=== PATIENT | male | born 1970 | race Caucasian/White ===

== ENCOUNTER → 2018-07-13 08:11 | Outpatient (CLI) | payer OTHER, MEDICAID, SELFPAY ==
--- NOTE | 2018-07-13 08:12 | DI.RAD.S_ITS ---
PROCEDURE: XR LUMBAR SPINE 2-3V INDICATIONS: Low back pain TECHNIQUE: 3 views of the lumbar spine were acquired. COMPARISON: None. FINDINGS: Bones: 5 [id number] vertebrae are present. There is normal bony alignment. No vertebral body compression fractures. No suspicious bony lesions. Degenerative endplate changes and bilateral facet arthrosis at L4-5 and L5-S1 levels are seen. Soft tissues: Overlying bowel gas pattern is normal. No suspicious soft tissue calcifications. IMPRESSION: Degenerative disc disease in lower lumbar spine. No compression fracture or traumatic spondylolisthesis. Dictated by: Jair Chu M.D. on 07/13/2018 at 11:12 Approved by: Jair Chu M.D. on 07/13/2018 at 11:13
== END ==
PROVIDERS: Family Provider Family Medicine; PCP Family Medicine; Visit Provider Family Medicine
DX: M51.36 Other intervertebral disc degeneration, lumbar region (principal); M51.37 Other intervertebral disc degeneration, lumbosacral region; M54.5 Low back pain
CPT/HCPCS: 72100

== ENCOUNTER 2018-08-01 13:58 | Emergency (ER) | payer OTHER, MEDICAID, SELFPAY ==
[2018-08-01] VITALS (7 sets, daily range): BP systolic 129–154; BP diastolic 70–94; PULSE 55–89; RESP 12–22; TEMP 36.3–36.9; O2SAT 96–99; BMI 30.8
--- NOTE | 2018-08-01 14:08 | DI.RAD.S_ITS ---
PROCEDURE: XR CHEST 1V INDICATIONS: chest pain TECHNIQUE: One view of the chest was acquired. COMPARISON: [facility], CHEST 2 VIEW, 02/19/2016, 9:28. [facility], CHEST 2 VIEW, 12/21/2015, 9:37. FINDINGS: Surgical changes and devices: None. Lungs and pleura: No pleural effusions or pneumothorax. Lungs are clear. Mediastinum: Mediastinal contours appear normal. Heart size is normal. Bones and chest wall: No suspicious bony lesions. Overlying soft tissues appear unremarkable. IMPRESSION: Mildly reduced inspiratory volume. Dictated by: Parker Block M.D. on 08/01/2018 at 14:25 Approved by: Parker Block M.D. on 08/01/2018 at 14:25
--- NOTE | 2018-08-01 14:11 | ED.CHESTPAIN ---
HPI - Chest Pain <CARRIE Dc - Last Filed: 08/01/18 21:52> General Chief Complaint: Chest Pain Stated Complaint: thinks he had a heart attack Time Seen by Provider: 08/01/18 14:09 Source: patient Mode of arrival: ambulatory Limitations: no limitations History of Present Illness HPI narrative: 47-year-old male with history of asthma who is a former smoker here for complaint of having chest pain that started earlier today. Approximately 0.5 hr prior to arrival he had left-sided chest pain that radiated into his left arm. He denies any trauma to his chest. He denies any shortness of breath at this time. He does report that he has had nasal congestion and cough over the past several days he has been using his albuterol inhaler to help with the symptoms. He denies any triggers for his pain. He states that he was getting into a vehicle when the pain started. No nausea or vomiting. No diaphoresis. Pain is a dull ache at this point. MD complaint: chest pain Related Data Home Medications Medication Instructions Recorded Confirmed acetaminophen [Tylenol] 1 dose PO PRN PRN 08/01/18 08/01/18 aspirin 650 mg PO .ONCE 08/01/18 08/01/18 ibuprofen 1 dose PO PRN PRN 08/01/18 08/01/18 methocarbamol 750 mg PO TID PRN 08/01/18 08/01/18 Previous Rx's Medication Instructions Recorded fluticasone 110 mcg/actuation HFA 1 puff INHALATION BID #12 gram 05/24/18 aerosol inhaler rosuvastatin 10 mg tablet 10 mg PO HS #30 tab 06/13/[address] See Label Instructions .ROUTE 06/28/18 .COMPLEX #1 each albuterol sulfate HFA 90 1 puff INHALATION Q4HP PRN #8 gm 07/12/18 mcg/actuation aerosol inhaler Allergies Allergy/AdvReac Type Severity Reaction Status Date / Time No Known Drug Allergies Allergy Unverified 06/28/18 15:56 Review of Systems <CARRIE Dc - Last Filed: 08/01/18 21:52> Constitutional Denies chills, Denies fatigue, Denies fever(s), Denies lethargy and Denies weakness Eyes Denies change in vision, Denies eye discharge, Denies irritation and Denies loss of vision ENT Ears, Nose, Mouth, and Throat: Denies change in voice, Denies neck pain and Denies sore throat Cardiovascular Reports chest pain at rest, Denies dyspnea and Denies dyspnea on exertion Respiratory Denies cough, Denies dyspnea, Denies dyspnea on exertion and Denies wheezing Gastrointestinal Gastrointestinal: Denies abdominal pain, Denies change in bowel habits, Denies diarrhea, Denies nausea and Denies vomiting Genitourinary Denies hematuria, Denies flank pain, Denies urinary incontinence and Denies urinary urgency Musculoskeletal Denies neck pain Integumentary/Breasts Denies pruritus, Denies erythema, Denies rash and Denies wounds Neurologic Denies confusion, Denies loss of vision and Denies weakness Psychiatric Denies anxiety, Denies confusion, Denies depression, Denies homicidal ideation and Denies suicidal ideation Endocrine Denies fatigue and Denies flushing Allergic/Immunologic Denies wheezing Exam <CARRIE Dc - Last Filed: 08/01/18 21:52> Initial Vital Signs Initial Vital Signs: Vital Signs Temperature 97.4 F L 08/01/18 14:10 Pulse Rate 89 08/01/18 14:10 Respiratory Rate 14 08/01/18 14:10 Blood Pressure 138/89 08/01/18 14:10 Pulse Oximetry 99 08/01/18 14:10 Const General: cooperative and well developed Nutritional Appearance: well nourished Orientation: alert, awake, oriented x3 and not confused [facility] Mouth: oral mucosae normal and moist mucous membranes Eyes Conjunctivae: conjunctivae normal Sclera: sclerae normal Pupils: PERRL EOM: EOM intact bilaterally Chest Chest: normal inspection of the chest Cardio Rate: regular rate Rhythm: regular rhythm Heart Sounds: no click, no gallops, no murmurs and no rubs Pulses: normal peripheral pulses Skin General: no rashes or lesions noted, No jaundice and No petechiae Neuro General: alert, oriented x3, gait normal and no focal motor deficits Speech: speech normal <Carolina Dumont MD - Last Filed: 08/02/18 12:21> Initial Vital Signs Initial Vital Signs: Vital Signs Temperature 97.4 F L 08/01/18 14:10 Pulse Rate 89 08/01/18 14:10 Respiratory Rate 14 08/01/18 14:10 Blood Pressure 138/89 08/01/18 14:10 Pulse Oximetry 99 08/01/18 14:10 Scores <CARRIE Dc - Last Filed: 08/01/18 21:52> HEART Score Heart Score history: Slightly Suspicious Heart Score EKG: Normal Heart Score Age: 45-64 years old Heart Score risk factors: 1-2 risk factors Heart Score troponin: < or = to normal limit Heart Score Total: 2 PERC Score Age greater than or equal to 50 years: No Heart rate greater than or equal to 100 bpm: No Room Air O2 Sat less than 95%: No Unilateral leg swelling: No Recent trauma or surgery: No Hemoptysis: No Prior PE or DVT: No Hormone Use: No Total PERC Score: 0 Course <CARRIE cD - Last Filed: 08/01/18 21:52> Orders Ordered: ED Orders 08/01/18 14:08 XR chest 1V Stat 08/01/18 14:09 EKG-12 Lead Stat 08/01/18 14:42 Complete Blood Count AUTO DIFF Stat Comprehensive Metabolic Panel Stat Lipase Stat Partial Thromboplastin Time Stat Prothrombin Time INR Stat Troponin & CK Cardiac Panel Stat 08/01/18 16:42 Troponin I Stat Vital Signs - 8 hr 08/01/18 14:10 08/01/18 14:39 08/01/18 15:15 Temperature 97.4 F L Pulse Rate 89 86 63 Respiratory Rate 14 22 12 Blood Pressure 138/89 Blood Pressure [Left Arm] 154/94 H 135/76 Pulse Oximetry 99 96 08/01/18 15:49 08/01/18 16:26 08/01/18 17:06 Temperature Pulse Rate 58 L 71 55 L Respiratory Rate 20 16 14 Blood Pressure Blood Pressure [Left Arm] 136/73 133/73 130/80 Pulse Oximetry 96 98 97 08/01/18 17:46 Temperature 98.4 F Pulse Rate 61 Respiratory Rate 19 Blood Pressure 129/70 Blood Pressure [Left Arm] Pulse Oximetry 97 <Carolina Dumont MD - Last Filed: 08/02/18 12:21> Orders Ordered: ED Orders 08/01/18 14:08 XR chest 1V Stat 08/01/18 14:09 EKG-12 Lead Stat 08/01/18 14:42 Complete Blood Count AUTO DIFF Stat Comprehensive Metabolic Panel Stat Lipase Stat Partial Thromboplastin Time Stat Prothrombin Time INR Stat Troponin & CK Cardiac Panel Stat 08/01/18 16:42 Troponin I Stat Vital Signs - 8 hr 08/01/18 14:10 08/01/18 14:39 08/01/18 15:15 Temperature 97.4 F L Pulse Rate 89 86 63 Respiratory Rate 14 22 12 Blood Pressure 138/89 Blood Pressure [Left Arm] 154/94 H 135/76 Pulse Oximetry 99 96 08/01/18 15:49 08/01/18 16:26 08/01/18 17:06 Temperature Pulse Rate 58 L 71 55 L Respiratory Rate 20 16 14 Blood Pressure Blood Pressure [Left Arm] 136/73 133/73 130/80 Pulse Oximetry 96 98 97 08/01/18 17:46 Temperature 98.4 F Pulse Rate 61 Respiratory Rate 19 Blood Pressure 129/70 Blood Pressure [Left Arm] Pulse Oximetry 97 MDM - Chest Pain <CARRIE Dc - Last Filed: 08/01/18 21:52> Lab Data Result diagrams: 08/01/18 14:42 08/01/18 14:42 Lab Results 08/01/18 08/01/18 08/01/18 Range/Units 14:42 14:42 14:42 WBC 8.7 (4.5-11.0) X10^3/uL RBC 4.94 (4.5-5.9) X10^6/uL Hgb 14.7 (13.5-17.5) g/dL Hct 42.1 (41-53) % MCV 85.3 (80-100) fL MCH 29.7 (26-34) PG MCHC 34.8 (30-36) % RDW 12.7 (11.6-14.8) % Plt Count 312 (150-400) X10^3/uL Neut % (Auto) 71.6 (50-75) % Lymph % (Auto) 18.9 L (25-40) % [place] % (Auto) 8.0 (3-14) % Eos % (Auto) 0.9 L (2-4) % Baso % (Auto) 0.6 (0-2) % Neut # (Auto) 6200 H (8187-0463) /uL PT 13.3 H (10.1-12.7) SECONDS INR 1.2 (0.9-1.3) APTT 31 (26.4-36.2) SECONDS Sodium 143 (137-145) mmol/L Potassium 4.1 (3.4-5.1) mmol/L Chloride 104 (98-107) mmol/L Carbon Dioxide 28 (22-32) mmol/L BUN 17 (9-20) mg/dL Creatinine 0.70 (0.66-1.25) mg/dL Estimated GFR > 60.0 (>60) mL/min BUN/Creatinine Ratio 24.3 H (6-22) Glucose 90 (70-100) mg/dL Calcium 9.5 (8.4-10.2) mg/dL Total Bilirubin 0.4 (0.2-1.3) mg/dL AST 30 (17-59) IU/L ALT 60 (21-72) IU/L Alkaline Phosphatase 73 (38-126) U/L Total Creatine Kinase 195 H (55-170) U/L CK-MB (CK-2) 3.15 H (<2.37) ng/mL CK-MB (CK-2) Rel Index 1.6 (1.5-5.0) % Troponin I < 0.012 (0.01-0.034) ng/mL Total Protein 7.3 (6.3-8.2) g/dL Albumin 4.7 (3.5-5.0) g/dL Globulin 2.6 (1.7-4.1) g/dL Albumin/Globulin Ratio 1.8 (1.0-2.8) Lipase 67 (23-300) U/L 08/01/18 Range/Units 16:42 WBC (4.5-11.0) X10^3/uL RBC (4.5-5.9) X10^6/uL Hgb (13.5-17.5) g/dL Hct (41-53) % MCV (80-100) fL MCH (26-34) PG MCHC (30-36) % RDW (11.6-14.8) % Plt Count (150-400) X10^3/uL Neut % (Auto) (50-75) % Lymph % (Auto) (25-40) % [place] % (Auto) (3-14) % Eos % (Auto) (2-4) % Baso % (Auto) (0-2) % Neut # (Auto) (5029-5421) /uL PT (10.1-12.7) SECONDS INR (0.9-1.3) APTT (26.4-36.2) SECONDS Sodium (137-145) mmol/L Potassium (3.4-5.1) mmol/L Chloride (98-107) mmol/L Carbon Dioxide (22-32) mmol/L BUN (9-20) mg/dL Creatinine (0.66-1.25) mg/dL Estimated GFR (>60) mL/min BUN/Creatinine Ratio (6-22) Glucose (70-100) mg/dL Calcium (8.4-10.2) mg/dL Total Bilirubin (0.2-1.3) mg/dL AST (17-59) IU/L ALT (21-72) IU/L Alkaline Phosphatase (38-126) U/L Total Creatine Kinase (55-170) U/L CK-MB (CK-2) (<2.37) ng/mL CK-MB (CK-2) Rel Index (1.5-5.0) % Troponin I < 0.012 (0.01-0.034) ng/mL Total Protein (6.3-8.2) g/dL Albumin (3.5-5.0) g/dL Globulin (1.7-4.1) g/dL Albumin/Globulin Ratio (1.0-2.8) Lipase (23-300) U/L Imaging Data Chest x-ray: Radiologist's impression: [address] [address] XRay Report Signed Patient: Eduardo Arellano MR#: [id number] : 1970 Acct:[id number] Age/Sex: 47 / M Date of Service: 08/01/18 Loc: ED Accession Number: [id number] Procedure: XR chest 1V Ordering Provider: Carolina Dumont MD PROCEDURE: XR CHEST 1V INDICATIONS: chest pain TECHNIQUE: One view of the chest was acquired. COMPARISON: [facility], CHEST 2 VIEW, 02/19/2016, 9:28. [facility], CHEST 2 VIEW, 12/21/2015, 9:37. FINDINGS: Surgical changes and devices: None. Lungs and pleura: No pleural effusions or pneumothorax. Lungs are clear. Mediastinum: Mediastinal contours appear normal. Heart size is normal. Bones and chest wall: No suspicious bony lesions. Overlying soft tissues appear unremarkable. IMPRESSION: Mildly reduced inspiratory volume. Dictated by: Parker Block M.D. on 08/01/2018 at 14:25 Approved by: Parker Block M.D. on 08/01/2018 at 14:25 ECG Data Interpretation: EKG shows normal sinus rhythm with no ST elevation or depression. No ectopy. Ventricular rate is 64. Pr interval of 169. QRS duration of 106. QT of 407 MDM Narrative Medical decision making narrative: Chest x-ray was obtained and was negative for any acute findings. EKG shows normal sinus rhythm with no ST elevation or depression. Two sets of cardiac enzymes were obtained shows elevated CK CK-MB however relative index was normal. Troponin was negative on both draws. CBC and Chem panel were obtained were unremarkable. Heart score was 2. Perc score was 0. Differential between muscle skeletal pain as cardiac related pain seems unlikely with negative troponins. [id number] Tylenol Motrin as needed for any discomfort. Follow up with primary care provider in the next few days for re-evaluation recommend echo/stress test if still having symptoms. For any worsening symptoms return to the emergency room. <Carolina Dumont MD - Last Filed: 08/02/18 12:21> Lab Data Lab Results 08/01/18 08/01/18 08/01/18 Range/Units 14:42 14:42 14:42 WBC 8.7 (4.5-11.0) X10^3/uL RBC 4.94 (4.5-5.9) X10^6/uL Hgb 14.7 (13.5-17.5) g/dL Hct 42.1 (41-53) % MCV 85.3 (80-100) fL MCH 29.7 (26-34) PG MCHC 34.8 (30-36) % RDW 12.7 (11.6-14.8) % Plt Count 312 (150-400) X10^3/uL Neut % (Auto) 71.6 (50-75) % Lymph % (Auto) 18.9 L (25-40) % [place] % (Auto) 8.0 (3-14) % Eos % (Auto) 0.9 L (2-4) % Baso % (Auto) 0.6 (0-2) % Neut # (Auto) 6200 H (3963-1376) /uL PT 13.3 H (10.1-12.7) SECONDS INR 1.2 (0.9-1.3) APTT 31 (26.4-36.2) SECONDS Sodium 143 (137-145) mmol/L Potassium 4.1 (3.4-5.1) mmol/L Chloride 104 (98-107) mmol/L Carbon Dioxide 28 (22-32) mmol/L BUN 17 (9-20) mg/dL Creatinine 0.70 (0.66-1.25) mg/dL Estimated GFR > 60.0 (>60) mL/min BUN/Creatinine Ratio 24.3 H (6-22) Glucose 90 (70-100) mg/dL Calcium 9.5 (8.4-10.2) mg/dL Total Bilirubin 0.4 (0.2-1.3) mg/dL AST 30 (17-59) IU/L ALT 60 (21-72) IU/L Alkaline Phosphatase 73 (38-126) U/L Total Creatine Kinase 195 H (55-170) U/L CK-MB (CK-2) 3.15 H (<2.37) ng/mL CK-MB (CK-2) Rel Index 1.6 (1.5-5.0) % Troponin I < 0.012 (0.01-0.034) ng/mL Total Protein 7.3 (6.3-8.2) g/dL Albumin 4.7 (3.5-5.0) g/dL Globulin 2.6 (1.7-4.1) g/dL Albumin/Globulin Ratio 1.8 (1.0-2.8) Lipase 67 (23-300) U/L 08/01/18 Range/Units 16:42 WBC (4.5-11.0) X10^3/uL RBC (4.5-5.9) X10^6/uL Hgb (13.5-17.5) g/dL Hct (41-53) % MCV (80-100) fL MCH (26-34) PG MCHC (30-36) % RDW (11.6-14.8) % Plt Count (150-400) X10^3/uL Neut % (Auto) (50-75) % Lymph % (Auto) (25-40) % [place] % (Auto) (3-14) % Eos % (Auto) (2-4) % Baso % (Auto) (0-2) % Neut # (Auto) (4552-2542) /uL PT (10.1-12.7) SECONDS INR (0.9-1.3) APTT (26.4-36.2) SECONDS Sodium (137-145) mmol/L Potassium (3.4-5.1) mmol/L Chloride (98-107) mmol/L Carbon Dioxide (22-32) mmol/L BUN (9-20) mg/dL Creatinine (0.66-1.25) mg/dL Estimated GFR (>60) mL/min BUN/Creatinine Ratio (6-22) Glucose (70-100) mg/dL Calcium (8.4-10.2) mg/dL Total Bilirubin (0.2-1.3) mg/dL AST (17-59) IU/L ALT (21-72) IU/L Alkaline Phosphatase (38-126) U/L Total Creatine Kinase (55-170) U/L CK-MB (CK-2) (<2.37) ng/mL CK-MB (CK-2) Rel Index (1.5-5.0) % Troponin I < 0.012 (0.01-0.034) ng/mL Total Protein (6.3-8.2) g/dL Albumin (3.5-5.0) g/dL Globulin (1.7-4.1) g/dL Albumin/Globulin Ratio (1.0-2.8) Lipase (23-300) U/L Discharge Plan Departure Patient Disposition: Home Clinical Impression: Acute chest wall pain Discharge Date/Time: 08/01/18 17:47 Interventions: ED Discharge Assessment Last Done: 08/01/18 17:46 Instructions: DI for Chest Pain Activity Restrictions/Additional Instructions: Laboratory results, EKG and chest x-ray today were unremarkable. Signs and symptoms presents as chest wall pain. Recommend following up with primary care provider in the next couple days if symptoms do not resolve recommend discussing with primary care provider echo/stress test for further evaluation. Use [id number] Tylenol or Motrin as needed for any discomfort. For any worsening symptoms return to the emergency room. Prescriptions: No Action disabled parking permit See Label Instructions .ROUTE .COMPLEX Qty: 1 RF: 0 fluticasone [Flovent HFA] 110 mcg/actuation HFA aerosol inhaler 1 puff INHALATION BID Qty: 12 RF: 5 rosuvastatin [Crestor] 10 mg tablet 10 mg PO HS Qty: 30 RF: 3 albuterol sulfate [Ventolin HFA] 90 mcg/actuation HFA aerosol inhaler 1 puff INHALATION Q4HP PRN (Reason: shortness of breath) Qty: 8 RF: 11 methocarbamol 500 mg tablet 750 mg PO TID PRN (Reason: Muscle Spasm) RF: 0 acetaminophen [Tylenol] 325 mg Tablet 1 dose PO PRN PRN (Reason: Pain, Mild) RF: 0 aspirin 325 mg Tablet 650 mg PO .ONCE RF: 0 ibuprofen 200 mg Tablet 1 dose PO PRN PRN (Reason: Pain, Mild) RF: 0 Referrals: [facility] [Provider Group] <Carolina Dumont MD - Last Filed: 08/02/18 12:21> [facility] I was in the emergency department during this patient's evaluation, and was present and available for questions or consultation.
--- NOTE | 2018-08-01 14:20 | ED_ITS ---
HPI - Chest Pain <CARRIE Dc - Last Filed: 08/01/18 21:52> General Chief Complaint: Chest Pain Stated Complaint: thinks he had a heart attack Time Seen by Provider: 08/01/18 14:09 Source: patient Mode of arrival: ambulatory Limitations: no limitations History of Present Illness HPI narrative: 47-year-old male with history of asthma who is a former smoker here for complaint of having chest pain that started earlier today. Approximately 0.5 hr prior to arrival he had left-sided chest pain that radiated into his left arm. He denies any trauma to his chest. He denies any shortness of breath at this time. He does report that he has had nasal congestion and cough over the past several days he has been using his albuterol inhaler to help with the symptoms. He denies any triggers for his pain. He states that he was getting into a vehicle when the pain started. No nausea or vomiting. No diaphoresis. Pain is a dull ache at this point. MD complaint: chest pain Related Data Home Medications Medication Instructions Recorded Confirmed acetaminophen [Tylenol] 1 dose PO PRN PRN 08/01/18 08/01/18 aspirin 650 mg PO .ONCE 08/01/18 08/01/18 ibuprofen 1 dose PO PRN PRN 08/01/18 08/01/18 methocarbamol 750 mg PO TID PRN 08/01/18 08/01/18 Previous Rx's Medication Instructions Recorded fluticasone 110 mcg/actuation HFA 1 puff INHALATION BID #12 gram 05/24/18 aerosol inhaler rosuvastatin 10 mg tablet 10 mg PO HS #30 tab 06/13/[address] See Label Instructions .ROUTE 06/28/18 .COMPLEX #1 each albuterol sulfate HFA 90 1 puff INHALATION Q4HP PRN #8 gm 07/12/18 mcg/actuation aerosol inhaler Allergies Allergy/AdvReac Type Severity Reaction Status Date / Time No Known Drug Allergies Allergy Unverified 06/28/18 15:56 Review of Systems <CARRIE Dc - Last Filed: 08/01/18 21:52> Constitutional Denies chills, Denies fatigue, Denies fever(s), Denies lethargy and Denies weakness Eyes Denies change in vision, Denies eye discharge, Denies irritation and Denies loss of vision ENT Ears, Nose, Mouth, and Throat: Denies change in voice, Denies neck pain and Denies sore throat Cardiovascular Reports chest pain at rest, Denies dyspnea and Denies dyspnea on exertion Respiratory Denies cough, Denies dyspnea, Denies dyspnea on exertion and Denies wheezing Gastrointestinal Gastrointestinal: Denies abdominal pain, Denies change in bowel habits, Denies diarrhea, Denies nausea and Denies vomiting Genitourinary Denies hematuria, Denies flank pain, Denies urinary incontinence and Denies urinary urgency Musculoskeletal Denies neck pain Integumentary/Breasts Denies pruritus, Denies erythema, Denies rash and Denies wounds Neurologic Denies confusion, Denies loss of vision and Denies weakness Psychiatric Denies anxiety, Denies confusion, Denies depression, Denies homicidal ideation and Denies suicidal ideation Endocrine Denies fatigue and Denies flushing Allergic/Immunologic Denies wheezing Exam <CARRIE Dc - Last Filed: 08/01/18 21:52> Initial Vital Signs Initial Vital Signs: Vital Signs Temperature 97.4 F L 08/01/18 14:10 Pulse Rate 89 08/01/18 14:10 Respiratory Rate 14 08/01/18 14:10 Blood Pressure 138/89 08/01/18 14:10 Pulse Oximetry 99 08/01/18 14:10 Const General: cooperative and well developed Nutritional Appearance: well nourished Orientation: alert, awake, oriented x3 and not confused [facility] Mouth: oral mucosae normal and moist mucous membranes Eyes Conjunctivae: conjunctivae normal Sclera: sclerae normal Pupils: PERRL EOM: EOM intact bilaterally Chest Chest: normal inspection of the chest Cardio Rate: regular rate Rhythm: regular rhythm Heart Sounds: no click, no gallops, no murmurs and no rubs Pulses: normal peripheral pulses Skin General: no rashes or lesions noted, No jaundice and No petechiae Neuro General: alert, oriented x3, gait normal and no focal motor deficits Speech: speech normal <Carolina Dumont MD - Last Filed: 08/02/18 12:21> Initial Vital Signs Initial Vital Signs: Vital Signs Temperature 97.4 F L 08/01/18 14:10 Pulse Rate 89 08/01/18 14:10 Respiratory Rate 14 08/01/18 14:10 Blood Pressure 138/89 08/01/18 14:10 Pulse Oximetry 99 08/01/18 14:10 Scores <CARRIE Dc - Last Filed: 08/01/18 21:52> HEART Score Heart Score history: Slightly Suspicious Heart Score EKG: Normal Heart Score Age: 45-64 years old Heart Score risk factors: 1-2 risk factors Heart Score troponin: < or = to normal limit Heart Score Total: 2 PERC Score Age greater than or equal to 50 years: No Heart rate greater than or equal to 100 bpm: No Room Air O2 Sat less than 95%: No Unilateral leg swelling: No Recent trauma or surgery: No Hemoptysis: No Prior PE or DVT: No Hormone Use: No Total PERC Score: 0 Course <CARRIE Dc - Last Filed: 08/01/18 21:52> Orders Ordered: ED Orders 08/01/18 14:08 XR chest 1V Stat 08/01/18 14:09 EKG-12 Lead Stat 08/01/18 14:42 Complete Blood Count AUTO DIFF Stat Comprehensive Metabolic Panel Stat Lipase Stat Partial Thromboplastin Time Stat Prothrombin Time INR Stat Troponin & CK Cardiac Panel Stat 08/01/18 16:42 Troponin I Stat Vital Signs - 8 hr 08/01/18 14:10 08/01/18 14:39 08/01/18 15:15 Temperature 97.4 F L Pulse Rate 89 86 63 Respiratory Rate 14 22 12 Blood Pressure 138/89 Blood Pressure [Left Arm] 154/94 H 135/76 Pulse Oximetry 99 96 08/01/18 15:49 08/01/18 16:26 08/01/18 17:06 Temperature Pulse Rate 58 L 71 55 L Respiratory Rate 20 16 14 Blood Pressure Blood Pressure [Left Arm] 136/73 133/73 130/80 Pulse Oximetry 96 98 97 08/01/18 17:46 Temperature 98.4 F Pulse Rate 61 Respiratory Rate 19 Blood Pressure 129/70 Blood Pressure [Left Arm] Pulse Oximetry 97 <Carolina Dumont MD - Last Filed: 08/02/18 12:21> Orders Ordered: ED Orders 08/01/18 14:08 XR chest 1V Stat 08/01/18 14:09 EKG-12 Lead Stat 08/01/18 14:42 Complete Blood Count AUTO DIFF Stat Comprehensive Metabolic Panel Stat Lipase Stat Partial Thromboplastin Time Stat Prothrombin Time INR Stat Troponin & CK Cardiac Panel Stat 08/01/18 16:42 Troponin I Stat Vital Signs - 8 hr 08/01/18 14:10 08/01/18 14:39 08/01/18 15:15 Temperature 97.4 F L Pulse Rate 89 86 63 Respiratory Rate 14 22 12 Blood Pressure 138/89 Blood Pressure [Left Arm] 154/94 H 135/76 Pulse Oximetry 99 96 08/01/18 15:49 08/01/18 16:26 08/01/18 17:06 Temperature Pulse Rate 58 L 71 55 L Respiratory Rate 20 16 14 Blood Pressure Blood Pressure [Left Arm] 136/73 133/73 130/80 Pulse Oximetry 96 98 97 08/01/18 17:46 Temperature 98.4 F Pulse Rate 61 Respiratory Rate 19 Blood Pressure 129/70 Blood Pressure [Left Arm] Pulse Oximetry 97 MDM - Chest Pain <CARRIE Dc - Last Filed: 08/01/18 21:52> Lab Data Result diagrams: 08/01/18 14:42 08/01/18 14:42 Lab Results 08/01/18 08/01/18 08/01/18 Range/Units 14:42 14:42 14:42 WBC 8.7 (4.5-11.0) X10^3/uL RBC 4.94 (4.5-5.9) X10^6/uL Hgb 14.7 (13.5-17.5) g/dL Hct 42.1 (41-53) % MCV 85.3 (80-100) fL MCH 29.7 (26-34) PG MCHC 34.8 (30-36) % RDW 12.7 (11.6-14.8) % Plt Count 312 (150-400) X10^3/uL Neut % (Auto) 71.6 (50-75) % Lymph % (Auto) 18.9 L (25-40) % Branch % (Auto) 8.0 (3-14) % Eos % (Auto) 0.9 L (2-4) % Baso % (Auto) 0.6 (0-2) % Neut # (Auto) 6200 H (1921-4937) /uL PT 13.3 H (10.1-12.7) SECONDS INR 1.2 (0.9-1.3) APTT 31 (26.4-36.2) SECONDS Sodium 143 (137-145) mmol/L Potassium 4.1 (3.4-5.1) mmol/L Chloride 104 (98-107) mmol/L Carbon Dioxide 28 (22-32) mmol/L BUN 17 (9-20) mg/dL Creatinine 0.70 (0.66-1.25) mg/dL Estimated GFR > 60.0 (>60) mL/min BUN/Creatinine Ratio 24.3 H (6-22) Glucose 90 (70-100) mg/dL Calcium 9.5 (8.4-10.2) mg/dL Total Bilirubin 0.4 (0.2-1.3) mg/dL AST 30 (17-59) IU/L ALT 60 (21-72) IU/L Alkaline Phosphatase 73 (38-126) U/L Total Creatine Kinase 195 H (55-170) U/L CK-MB (CK-2) 3.15 H (<2.37) ng/mL CK-MB (CK-2) Rel Index 1.6 (1.5-5.0) % Troponin I < 0.012 (0.01-0.034) ng/mL Total Protein 7.3 (6.3-8.2) g/dL Albumin 4.7 (3.5-5.0) g/dL Globulin 2.6 (1.7-4.1) g/dL Albumin/Globulin Ratio 1.8 (1.0-2.8) Lipase 67 (23-300) U/L 08/01/18 Range/Units 16:42 WBC (4.5-11.0) X10^3/uL RBC (4.5-5.9) X10^6/uL Hgb (13.5-17.5) g/dL Hct (41-53) % MCV (80-100) fL MCH (26-34) PG MCHC (30-36) % RDW (11.6-14.8) % Plt Count (150-400) X10^3/uL Neut % (Auto) (50-75) % Lymph % (Auto) (25-40) % Branch % (Auto) (3-14) % Eos % (Auto) (2-4) % Baso % (Auto) (0-2) % Neut # (Auto) (2141-2454) /uL PT (10.1-12.7) SECONDS INR (0.9-1.3) APTT (26.4-36.2) SECONDS Sodium (137-145) mmol/L Potassium (3.4-5.1) mmol/L Chloride (98-107) mmol/L Carbon Dioxide (22-32) mmol/L BUN (9-20) mg/dL Creatinine (0.66-1.25) mg/dL Estimated GFR (>60) mL/min BUN/Creatinine Ratio (6-22) Glucose (70-100) mg/dL Calcium (8.4-10.2) mg/dL Total Bilirubin (0.2-1.3) mg/dL AST (17-59) IU/L ALT (21-72) IU/L Alkaline Phosphatase (38-126) U/L Total Creatine Kinase (55-170) U/L CK-MB (CK-2) (<2.37) ng/mL CK-MB (CK-2) Rel Index (1.5-5.0) % Troponin I < 0.012 (0.01-0.034) ng/mL Total Protein (6.3-8.2) g/dL Albumin (3.5-5.0) g/dL Globulin (1.7-4.1) g/dL Albumin/Globulin Ratio (1.0-2.8) Lipase (23-300) U/L Imaging Data Chest x-ray: Radiologist's impression: [address] [address] XRay Report Signed Patient: Eduardo Arellano MR#: [id number] : 1970 Acct:[id number] Age/Sex: 47 / M Date of Service: 08/01/18 Loc: ED Accession Number: [id number] Procedure: XR chest 1V Ordering Provider: Carolina Dumont MD PROCEDURE: XR CHEST 1V INDICATIONS: chest pain TECHNIQUE: One view of the chest was acquired. COMPARISON: [facility], CHEST 2 VIEW, 02/19/2016, 9:28. [facility], CHEST 2 VIEW, 12/21/2015, 9:37. FINDINGS: Surgical changes and devices: None. Lungs and pleura: No pleural effusions or pneumothorax. Lungs are clear. Mediastinum: Mediastinal contours appear normal. Heart size is normal. Bones and chest wall: No suspicious bony lesions. Overlying soft tissues appear unremarkable. IMPRESSION: Mildly reduced inspiratory volume. Dictated by: Parker Block M.D. on 08/01/2018 at 14:25 Approved by: Parker Block M.D. on 08/01/2018 at 14:25 ECG Data Interpretation: EKG shows normal sinus rhythm with no ST elevation or depression. No ectopy. Ventricular rate is 64. Pr interval of 169. QRS duration of 106. QT of 407 MDM Narrative Medical decision making narrative: Chest x-ray was obtained and was negative for any acute findings. EKG shows normal sinus rhythm with no ST elevation or depression. Two sets of cardiac enzymes were obtained shows elevated CK CK-MB however relative index was normal. Troponin was negative on both draws. CBC and Chem panel were obtained were unremarkable. Heart score was 2. Perc score was 0. Differential between muscle skeletal pain as cardiac related pain seems unlikely with negative troponins. [id number] Tylenol Motrin as needed for any discomfort. Follow up with primary care provider in the next few days for re-evaluation recommend echo/stress test if still having symptoms. For any worsening symptoms return to the emergency room. <Carolina Dumont MD - Last Filed: 08/02/18 12:21> Lab Data Lab Results 08/01/18 08/01/18 08/01/18 Range/Units 14:42 14:42 14:42 WBC 8.7 (4.5-11.0) X10^3/uL RBC 4.94 (4.5-5.9) X10^6/uL Hgb 14.7 (13.5-17.5) g/dL Hct 42.1 (41-53) % MCV 85.3 (80-100) fL MCH 29.7 (26-34) PG MCHC 34.8 (30-36) % RDW 12.7 (11.6-14.8) % Plt Count 312 (150-400) X10^3/uL Neut % (Auto) 71.6 (50-75) % Lymph % (Auto) 18.9 L (25-40) % Branch % (Auto) 8.0 (3-14) % Eos % (Auto) 0.9 L (2-4) % Baso % (Auto) 0.6 (0-2) % Neut # (Auto) 6200 H (6692-0941) /uL PT 13.3 H (10.1-12.7) SECONDS INR 1.2 (0.9-1.3) APTT 31 (26.4-36.2) SECONDS Sodium 143 (137-145) mmol/L Potassium 4.1 (3.4-5.1) mmol/L Chloride 104 (98-107) mmol/L Carbon Dioxide 28 (22-32) mmol/L BUN 17 (9-20) mg/dL Creatinine 0.70 (0.66-1.25) mg/dL Estimated GFR > 60.0 (>60) mL/min BUN/Creatinine Ratio 24.3 H (6-22) Glucose 90 (70-100) mg/dL Calcium 9.5 (8.4-10.2) mg/dL Total Bilirubin 0.4 (0.2-1.3) mg/dL AST 30 (17-59) IU/L ALT 60 (21-72) IU/L Alkaline Phosphatase 73 (38-126) U/L Total Creatine Kinase 195 H (55-170) U/L CK-MB (CK-2) 3.15 H (<2.37) ng/mL CK-MB (CK-2) Rel Index 1.6 (1.5-5.0) % Troponin I < 0.012 (0.01-0.034) ng/mL Total Protein 7.3 (6.3-8.2) g/dL Albumin 4.7 (3.5-5.0) g/dL Globulin 2.6 (1.7-4.1) g/dL Albumin/Globulin Ratio 1.8 (1.0-2.8) Lipase 67 (23-300) U/L 08/01/18 Range/Units 16:42 WBC (4.5-11.0) X10^3/uL RBC (4.5-5.9) X10^6/uL Hgb (13.5-17.5) g/dL Hct (41-53) % MCV (80-100) fL MCH (26-34) PG MCHC (30-36) % RDW (11.6-14.8) % Plt Count (150-400) X10^3/uL Neut % (Auto) (50-75) % Lymph % (Auto) (25-40) % Branch % (Auto) (3-14) % Eos % (Auto) (2-4) % Baso % (Auto) (0-2) % Neut # (Auto) (9927-6999) /uL PT (10.1-12.7) SECONDS INR (0.9-1.3) APTT (26.4-36.2) SECONDS Sodium (137-145) mmol/L Potassium (3.4-5.1) mmol/L Chloride (98-107) mmol/L Carbon Dioxide (22-32) mmol/L BUN (9-20) mg/dL Creatinine (0.66-1.25) mg/dL Estimated GFR (>60) mL/min BUN/Creatinine Ratio (6-22) Glucose (70-100) mg/dL Calcium (8.4-10.2) mg/dL Total Bilirubin (0.2-1.3) mg/dL AST (17-59) IU/L ALT (21-72) IU/L Alkaline Phosphatase (38-126) U/L Total Creatine Kinase (55-170) U/L CK-MB (CK-2) (<2.37) ng/mL CK-MB (CK-2) Rel Index (1.5-5.0) % Troponin I < 0.012 (0.01-0.034) ng/mL Total Protein (6.3-8.2) g/dL Albumin (3.5-5.0) g/dL Globulin (1.7-4.1) g/dL Albumin/Globulin Ratio (1.0-2.8) Lipase (23-300) U/L Discharge Plan Departure Patient Disposition: Home Clinical Impression: Acute chest wall pain Discharge Date/Time: 08/01/18 17:47 Interventions: ED Discharge Assessment Last Done: 08/01/18 17:46 Instructions: DI for Chest Pain Activity Restrictions/Additional Instructions: Laboratory results, EKG and chest x-ray today were unremarkable. Signs and symptoms presents as chest wall pain. Recommend following up with primary care provider in the next couple days if symptoms do not resolve recommend discussing with primary care provider echo/stress test for further evaluation. Use [id number] Tylenol or Motrin as needed for any discomfort. For any worsening symptoms return to the emergency room. Prescriptions: No Action disabled parking permit See Label Instructions .ROUTE .COMPLEX Qty: 1 RF: 0 fluticasone [Flovent HFA] 110 mcg/actuation HFA aerosol inhaler 1 puff INHALATION BID Qty: 12 RF: 5 rosuvastatin [Crestor] 10 mg tablet 10 mg PO HS Qty: 30 RF: 3 albuterol sulfate [Ventolin HFA] 90 mcg/actuation HFA aerosol inhaler 1 puff INHALATION Q4HP PRN (Reason: shortness of breath) Qty: 8 RF: 11 methocarbamol 500 mg tablet 750 mg PO TID PRN (Reason: Muscle Spasm) RF: 0 acetaminophen [Tylenol] 325 mg Tablet 1 dose PO PRN PRN (Reason: Pain, Mild) RF: 0 aspirin 325 mg Tablet 650 mg PO .ONCE RF: 0 ibuprofen 200 mg Tablet 1 dose PO PRN PRN (Reason: Pain, Mild) RF: 0 Referrals: [facility] [Provider Group] <Carolina Dumont MD - Last Filed: 08/02/18 12:21> [facility] I was in the emergency department during this patient's evaluation, and was present and available for questions or consultation.
[2018-08-01 14:49] LABS: Add Manual Diff / Slide Review NO; Basophils Percent Auto 0.6 % (0-2); Eosinophils Percent Auto 0.9 % (2-4); Hematocrit 42.1 % (41-53); Hemoglobin 14.7 g/dL (13.5-17.5); Lymphocytes Percent Auto 18.9 % (25-40); Mean Corpuscular HGB Conc 34.8 % (30-36); Mean Corpuscular Hemoglobin 29.7 PG (26-34); Mean Corpuscular Volume 85.3 fL (80-100); Neutrophils Absolute Auto 6200 /uL (3000-5900); Neutrophils Percent Auto 71.6 % (50-75); Platelet Count 312 X10^3/uL (150-400); Red Blood Cell Count 4.94 X10^6/uL (4.5-5.9); Red Cell Distribution Width 12.7 % (11.6-14.8); White Blood Cell Count 8.7 X10^3/uL (4.5-11.0)
[2018-08-01 14:56] LABS: INR 1.2 (0.9-1.3); Prothrombin Time 13.3 SECONDS (10.1-12.7)
[2018-08-01 14:59] LABS: PTT Partial Thromboplastin Tim 31 SECONDS (26.4-36.2)
[2018-08-01 15:02] LABS: Alanine Aminotransferase 60 IU/L (21-72); Albumin 4.7 g/dL (3.5-5.0); Albumin Globulin Ratio 1.8 (1.0-2.8); Alkaline Phosphatase 73 U/L (38-126); Aspartate Aminotransferase 30 IU/L (17-59); BUN Creatinine Ratio 24.3 (6-22); Bilirubin Total 0.4 mg/dL (0.2-1.3); Blood Urea Nitrogen 17 mg/dL (9-20); Calcium 9.5 mg/dL (8.4-10.2); Carbon Dioxide 28 mmol/L (22-32); Chloride 104 mmol/L (98-107); Creatine Kinase 195 U/L (55-170); Estimated Glomerular Filt Rate > 60.0 mL/min (>60); Globulin 2.6 g/dL (1.7-4.1); Glucose 90 mg/dL (70-100); HEMOLYSIS < 15 (0-50); Lipase 67 U/L (23-300); Potassium 4.1 mmol/L (3.4-5.1); Sodium 143 mmol/L (137-145); Total Protein 7.3 g/dL (6.3-8.2)
[2018-08-01 15:15] LABS: Troponin I < 0.012 ng/mL (0.01-0.034)
[2018-08-01 15:18] LABS: CKMB % Relative Index 1.6 % (1.5-5.0); Creatine Kinase MB 3.15 ng/mL (<2.37)
[2018-08-01 17:17] LABS: Troponin I < 0.012 ng/mL (0.01-0.034)
== END 2018-08-01 17:47 | disposition home or self-care (01) ==
PROVIDERS: Emergency Medicine; Emergency Provider Nurse Practitioner Family
DX: R07.89 Other chest pain (principal)
CPT/HCPCS: 36415; 71045; 80053; 82550; 82553; 83690; 84484; 85025; 85610; 85730; 93005; 99283; 99285

== ENCOUNTER → 2021-06-10 09:59 | Outpatient (CLI) | payer OTHER, MEDICAID, SELFPAY ==
[2021-06-10 11:10] LABS: BUN Creatinine Ratio 18.7 (6-22); Blood Urea Nitrogen 14 mg/dL (9-20); Calcium 9.2 mg/dL (8.4-10.2); Carbon Dioxide 26 mmol/L (22-32); Chloride 103 mmol/L (98-107); Cholesterol 162 mg/dL (140-199); Estimated Glomerular Filt Rate > 60.0 mL/min (>60); Glucose 99 mg/dL (70-100); HDL Cholesterol 32 mg/dL (40-60); HEMOLYSIS < 15 (0-50); LDL Cholesterol Calculated 94 mg/dL (<100); Potassium 4.3 mmol/L (3.4-5.1); Sodium 138 mmol/L (137-145); Triglycerides 180 mg/dL (35-150)
== END ==
PROVIDERS: PCP Student in an Organized Health Care Education/Training Program; Referring Provider Student in an Organized Health Care Education/Training Program; Visit Provider Student in an Organized Health Care Education/Training Program
DX: E78.5 Hyperlipidemia, unspecified (principal); Z79.1 Long term (current) use of non-steroidal anti-inflammatories (NSAID)
CPT/HCPCS: 36415; 80048; 80061

== ENCOUNTER 2021-06-11 19:09 | Emergency (ER) | payer OTHER, MEDICAID, SELFPAY ==
[2021-06-11 19:43] VITALS: BP 126/94; PULSE 80; RESP 17; TEMP 36.9; O2SAT 95; BMI 32.1
[2021-06-11 20:08] LABS: COVID19 -Nasal RAPID Negative (Negative)
[2021-06-11 21:24] VITALS: BP 123/70; PULSE 71; RESP 18; TEMP 37.2; O2SAT 97
--- NOTE | 2021-06-11 21:40 | ED.GENADULT ---
HPI - General Adult General Chief complaint: Upper Respiratory Symptoms Stated complaint: Sore Throat, SOB Time Seen by Provider: 06/11/21 21:22 Source: patient Mode of arrival: Ambulatory Limitations: no limitations History of Present Illness HPI narrative: Patient is a 50-year-old male who is here for evaluation of a sore throat, problems swallowing, a cough, sinus congestion, postnasal drip, and some shortness of breath. This medical for the past couple days. Not tried anything for symptoms prior to arrival. Related Data Previous Rx's Medication Instructions Recorded aspirin 81 mg tablet,delayed 81 mg PO DAILY #30 tab 08/07/18 release (Adult Aspirin Regimen) albuterol sulfate 90 mcg/actuation 1 puff INHALATION Q4HP PRN #6.7 g 03/02/21 aerosol inhaler (Ventolin HFA) fluticasone propionate 110 1 puff INHALATION BID #36 g 03/02/21 mcg/actuation HFA aerosol inhaler (Flovent HFA) tamsulosin 0.4 mg capsule 0.8 mg PO BEDTIME #180 cap 04/12/21 rosuvastatin 10 mg tablet (Crestor) 10 mg PO HS #90 tab 05/14/21 tizanidine 4 mg tablet 4 mg PO TID PRN #90 tab 05/14/21 Allergies Allergy/AdvReac Type Severity Reaction Status Date / Time cyclobenzaprine AdvReac Mild SPASMS Verified 03/02/21 09:51 [From Flexeril] Review of Systems Constitutional Constitutional: Denies fever(s) ENT Ears, Nose, Mouth, and Throat: Reports as per HPI and Reports sore throat Cardiovascular Cardiovascular: Reports system reviewed and no additional complaints, except as documented Respiratory Respiratory: Reports as per HPI Gastrointestinal Gastrointestinal: Reports system reviewed and no additional complaints, except as documented Musculoskeletal Musculoskeletal: Reports system reviewed and no additional complaints, except as documented Integumentary/Breasts Skin/Breast: Reports system reviewed and no additional complaints, except as documented Neurologic Neurologic: Reports system reviewed and no additional complaints, except as documented Hematologic/Lymphatic On Anticoagulants: No Allergic/Immunologic Allergic/Immunologic: Reports system reviewed and no additional complaints, except as documented Patient History Medical History Asthma (Unknown) Chronic back pain (1994) Hearing loss (2011) Hepatitis C (2004) Herpes (Unknown) Hx of fracture (~1980) Hyperlipemia (Unknown) Obesity (BMI 30.0-34.9) Plantar fasciitis (10/2017) Substance abuse (1982) Verruca plana (~2012) Surgical History (Updated 03/07/21 @ 15:57 by Miguel Fishman MD) No history of previous surgery Family History Mother Cancer Grandfather No problems noted. Grandmother No problems noted. Social History Smoking Status: Former smoker Smoking Status: Former smoker Substance Use Type: does not use Exam Initial Vital Signs Initial Vital Signs: Vital Signs Temperature 98.5 F 06/11/21 19:43 Pulse Rate 80 06/11/21 19:43 Respiratory Rate 17 06/11/21 19:43 Blood Pressure 126/94 H 06/11/21 19:43 Pulse Oximetry 95 06/11/21 19:43 Const General: cooperative and healthy appearing [facility] Head: normal to inspection and normocephalic Ears: TM's normal bilaterally Nose: external nose normal Face and sinus: normal facial exam Mouth: oral mucosae normal Throat: posterior oropharynx normal, uvula midline and no uvular edema Neck Lymphatic: No lymphadenopathy Resp Auscultation: clear to auscultation bilaterally Cardio Rate: regular rate GI Inspection: normal to inspection Skin General: no rashes or lesions noted Neuro General: patient alert, patient awake and moves all extremities Extrem General: normal to inspection Psych Appearance: grossly normal Course Orders Ordered: ED Orders 06/11/21 19:50 COVID19 -Nasal swab/Pre-Proc Stat Discontinued Medications Dexamethasone (Dexamethasone 4 Mg Tablet) 12 mg PO NOW ONE Stop: 06/11/21 21:41 Last Admin: 06/11/21 21:55 Dose: 12 mg Documented by: NICCI Vital Signs Vital signs: Vital Signs - 8 hr 06/11/21 21:24 06/11/21 21:59 Temperature 98.9 F Pulse Rate 71 77 Respiratory Rate 18 16 Blood Pressure 123/70 126/78 Pulse Oximetry 97 97 Medical Decision Making Lab Data Lab results reviewed: Yes I reviewed the patient's lab results. Labs: Lab Results 06/11/21 Range/Units 19:50 SARS-CoV-2 (PCR) Negative (Negative) MDM Narrative Medical decision making narrative: Nontoxic appearing. Physical exam is relatively unremarkable. COVID is negative. I suspect this is a upper respiratory infection and postnasal drip causing his symptoms. No indication for antibiotics. Low suspicion for strep throat given his exam. Hold on further workup for now. We did discuss the use of antihistamines/decongestants at home. He is given return precautions. He expressed understanding agreement. Discharge Plan Departure Patient Disposition: Home Clinical Impression: Pharyngitis, Upper respiratory infection Instructions: Sore Throat Activity Restrictions/Additional Instructions: Recommend you continue all of your medications as directed. Contact your primary doctor for follow-up. Return to the emergency department for any new or worsening symptoms Prescriptions: No Action aspirin [Adult Aspirin Regimen] 81 mg tablet,delayed release (DR/EC) 81 mg PO DAILY Qty: 30 RF: 11 tamsulosin 0.4 mg capsule 0.8 mg PO BEDTIME Qty: 180 RF: 3 rosuvastatin [Crestor] 10 mg tablet 10 mg PO HS Qty: 90 RF: 2 tizanidine 4 mg tablet 4 mg PO TID PRN (Reason: muscle spasticity) Qty: 90 RF: 2 Flovent HFA 110 mcg/actuation HFA aerosol inhaler 1 puff INHALATION BID Qty: 36 RF: 3 albuterol sulfate [Ventolin HFA] 90 mcg/actuation HFA aerosol inhaler 1 puff INHALATION Q4HP PRN (Reason: shortness of breath) Qty: 6.7 RF: 11 Referrals: Miguel Fishman MD [Primary Care Provider] -
[2021-06-11] MEDS: dexAMETHasone 4 MG TABLET 12 MG PO (21:55)
[2021-06-11 21:59] VITALS: BP 126/78; PULSE 77; RESP 16; O2SAT 97
== END 2021-06-11 21:59 | disposition home or self-care (01) ==
PROVIDERS: Emergency Provider Emergency Medicine; PCP Student in an Organized Health Care Education/Training Program
DX: J06.9 Acute upper respiratory infection, unspecified (principal); J02.9 Acute pharyngitis, unspecified; R05 Cough; R06.02 Shortness of breath; R09.82 Postnasal drip; Z20.822 Contact with and (suspected) exposure to COVID-19
CPT/HCPCS: 87635; 99283; C9803

== ENCOUNTER → 2022-02-14 10:00 | Outpatient (CLI) | payer OTHER, MEDICAID, SELFPAY ==
[2022-02-14 10:34] LABS: COVID19 -Nasal RAPID POSITIVE (Negative)
== END ==
PROVIDERS: PCP Student in an Organized Health Care Education/Training Program; Visit Provider Student in an Organized Health Care Education/Training Program
DX: Z20.822 Contact with and (suspected) exposure to COVID-19 (principal); U07.1 COVID-19
CPT/HCPCS: 87635

== ENCOUNTER → 2022-09-14 13:23 | Outpatient (CLI) | payer OTHER, MEDICAID, SELFPAY ==
[2022-09-14 14:33] LABS: Alanine Aminotransferase 38 IU/L (<50); Albumin 4.6 g/dL (3.5-5.0); Albumin Globulin Ratio 1.8 (1.0-2.8); Alkaline Phosphatase 85 U/L (38-126); Aspartate Aminotransferase 26 IU/L (17-59); BUN Creatinine Ratio 25.3 (6-22); Bilirubin Total 0.5 mg/dL (0.2-1.3); Blood Urea Nitrogen 19 mg/dL (9-20); Calcium 9.1 mg/dL (8.4-10.2); Carbon Dioxide 25 mmol/L (22-32); Chloride 101 mmol/L (98-107); Cholesterol 194 mg/dL (140-199); Estimated Glomerular Filt Rate > 60 mL/min (>60); Globulin 2.6 g/dL (1.7-4.1); Glucose 85 mg/dL (70-100); HDL Cholesterol 27 mg/dL (40-60); HEMOLYSIS < 15 (0-50); LDL Cholesterol Calculated 120 mg/dL (<100); Potassium 4.4 mmol/L (3.4-5.1); Sodium 138 mmol/L (137-145); Total Protein 7.2 g/dL (6.3-8.2); Triglycerides 236 mg/dL (35-150)
== END ==
PROVIDERS: PCP Student in an Organized Health Care Education/Training Program; Referring Provider Student in an Organized Health Care Education/Training Program; Visit Provider Student in an Organized Health Care Education/Training Program
DX: E78.2 Mixed hyperlipidemia (principal); B19.20 Unspecified viral hepatitis C without hepatic coma; Z79.1 Long term (current) use of non-steroidal anti-inflammatories (NSAID)
CPT/HCPCS: 36415; 80053; 80061

== ENCOUNTER 2023-01-17 12:57 | Day surgery (SDC) | payer OTHER, MEDICAID, SELFPAY ==
[2023-01-17 13:19] VITALS: BMI 33.0
[2023-01-17] MEDS: LACTATED RINGERS 1,000 ML 200 ML IV (13:22)
[2023-01-17 13:23] VITALS: BP 128/73; PULSE 58; RESP 16; TEMP 36.5; O2SAT 97
--- NOTE | 2023-01-17 14:36 | PM.HP.1 ---
History of Present Illness History of Present Illness Date Patient Seen: 01/17/23 Time Patient Seen: 14:37 Chief complaint: Colonoscopy Narrative: The patient presents for colorectal screening. They have never had any previous examination for such. No personal or family history of colon cancer. On further history denies any recent gastrointestinal symptoms. No nausea, vomiting, abdominal pain, loss of appetite, unexplained weight loss, change in bowel habits, or blood per rectum. Patient History Medical History COVID-19 Gastrocnemius equinus Hearing loss (2011) Hepatitis C (2004) Herpes (Unknown) Hx of fracture (~1980) Hyperlipemia (Unknown) Methamphetamine abuse in remission Moderate persistent allergic asthma Obesity (BMI 30.0-34.9) Peripheral polyneuropathy (08/17/17) Plantar fasciitis (10/2017) Plantar fasciitis, bilateral Pulmonary emphysema (02/01/16) Verruca plana (~2012) Surgical History No history of previous surgery Family & Social History Family History Mother Cancer Grandfather No problems noted. Grandmother No problems noted. Tobacco & Substance use: Smoking Status Former smoker alcohol intake never Substance Use Type does not use Meds Home Medications and Allergies Home Medications Medication Instructions Recorded Confirmed Type rosuvastatin 10 mg tablet (Crestor) 10 mg PO BEDTIME #90 tabs 09/14/22 01/17/23 Rx tizanidine 4 mg tablet 4 mg PO BEDTIME PRN muscle 09/14/22 01/17/23 Rx spasticity #90 tabs Allergies Allergy/AdvReac Type Severity Reaction Status Date / Time cyclobenzaprine AdvReac Mild SPASMS Verified 11/08/22 09:21 [From Flexeril] Exam Vital Signs (past 8 hours): - 01/17/23 13:23 Temperature 97.7 F Pulse Rate 58 L Respiratory Rate 16 Blood Pressure 128/73 Pulse Oximetry 97 Oxygen Delivery Method Room Air Oxygen Delivery Method Room Air Narrative Exam Narrative: General adult man alert oriented no acute distress Assessment & Plan Assessment & Plan narrative: The patient requires colorectal screening and colonoscopy is recommended. Technical details were discussed. Risks, benefits, alternatives explained. Risks including but not limited to myocardial infarction, aspiration, bleeding, pain, missed lesion, incomplete examination, need for further radiographic studies, colonic perforation, and need for major abdominal surgery were discussed. All questions were answered to their satisfaction, and they are in agreement with this plan. Time Spent With Patient Critical Care time: I spent a total of [] minutes of critical care time on this patient's care today; this time is exclusive of procedural time.
--- NOTE | 2023-01-17 14:38 | PM.OP.COLON ---
Operative Date/Time/Diagnoses Date of procedure: 01/17/23 Time of procedure: 14:38 Pre-op diagnosis: Colorectal screening Post-op diagnosis: same Procedure & Clinicians Study performed: Colonoscopy Same procedure as scheduled: Yes Indications: Colorectal screening Surgeon: Liang Narayan Procedure Notes Procedure in detail: The history and physical was performed/updated and the patient is ASA class is 2. The procedure was discussed in detail with the patient. Potential risks complications including infection, bleeding, missed diagnosis, perforation, need for surgery, and were explained. Their questions were answered and informed consent was obtained. Patient was brought to the procedure room and placed standard monitoring equipment. The patient's vital signs were monitored continuously throughout the entire procedure. Prior to starting time-out was performed. The patient was placed in the left lateral recumbent position. Procedural sedation was administered by anesthesia. Examination began with a thorough inspection of the perianal area there was no evidence of fissures, fistulae, external hemorrhoids or cutaneous malignancy. The colonoscopy scope was then placed into the anal canal and was advanced to the cecum, which was identified by the ileocecal valve, the appendiceal orifice and the confluence of the taenia. The scope was then slowly withdrawn examining colon thoroughly in all directions, irrigating it of any residual stool. No masses polyps or inflammation were identified. Normal healthy colon. The patient tolerated the procedure well. They will be discharged once criteria are met. The prep was of good/excellent quality. The withdrawl time was 6 minutes. Impression: Normal colonoscopy Post-procedure Recommendations: Colonoscopy in 10 years and High fiber diet Disposition: same day surgery
[2023-01-17 14:55] VITALS: BP 112/63; PULSE 64; RESP 15; TEMP 36.3; O2SAT 92
[2023-01-17 15:01] VITALS: BP 108/67; PULSE 64; RESP 15; O2SAT 93
[2023-01-17 15:05] VITALS: BP 108/65; PULSE 72; RESP 16; O2SAT 98
--- NOTE | 2023-04-05 12:22 | PM.PNB.1 ---
Peripheral Nerve Block Note Pre-Procedure Reason for block: Attending surgeon request/order for post-op pain management Consent obtained from: Patient Procedure Date of procedure: 04/05/23 Start Time: 11:25 End Time: 11:35 Location: Pre-Op Position: Supine Sterile Technique: U/S probe cover and Chloraprep Skin Wheal: Lidocaine 1% mL: 2 Gauge: 27 Equipment Single injection - Needle brand, gauge, length: 22 g needle Medications Medications - enter concentration (%) & mL in comment field: Bupivacaine (.5% 20 ml) Test Dose: Negative Incremental aspiration prior to injection: Yes Ultrasound Reason for Ultrasound: U/S guidance used for needle placement and U/S used to visualize spread of anesthetic Image printed/saved/archived: Yes Vital signs VS: Oxygen Delivery Method Room Air Oxygen Flow Rate 98
== END 2023-01-17 15:11 | disposition home or self-care (01) ==
PROVIDERS: PCP Student in an Organized Health Care Education/Training Program; Referring Provider Surgery; Visit Provider Surgery
PROC: 0DJD8ZZ Inspection of Lower Intestinal Tract, Via Natural or Artificial Opening Endoscopic (ICD-10-PCS; CPT 45378; principal; 2023-01-17 14:00)
DX: Z12.11 Encounter for screening for malignant neoplasm of colon (principal)
CPT/HCPCS: 45378; J2704

== ENCOUNTER → 2023-11-01 10:50 | Outpatient (CLI) | payer OTHER, MEDICAID, SELFPAY ==
[2023-11-01 11:59] LABS: Add Manual Diff / Slide Review NO; Basophils Absolute Auto 100 /uL (0-100); Basophils Percent Auto 0.9 % (0-2); Eosinophils Absolute Auto 100 /uL (0-450); Eosinophils Percent Auto 2.4 % (2-4); Hematocrit 43.3 % (41-53); Hemoglobin 14.5 g/dL (13.5-17.5); Lymphocytes Absolute Auto 1200 /uL (1100-4500); Lymphocytes Percent Auto 20.4 % (25-40); Mean Corpuscular HGB Conc 33.4 % (30-36); Mean Corpuscular Hemoglobin 28.9 PG (26-34); Mean Corpuscular Volume 86.4 fL (80-100); Monocytes Absolute Auto 400 /uL (0-900); Monocytes Percent Auto 7.2 % (3-14); Neutrophils Absolute Auto 4200 /uL (1500-7000); Neutrophils Percent Auto 69.1 % (50-75); Platelet Count 312 X10^3/uL (150-400); Red Blood Cell Count 5.02 X10^6/uL (4.5-5.9); Red Cell Distribution Width 13.3 % (11.6-14.8); White Blood Cell Count 6.1 X10^3/uL (4.5-11.0)
[2023-11-01 12:13] LABS: Alanine Aminotransferase 44 IU/L (<50); Albumin 4.4 g/dL (3.5-5.0); Albumin Globulin Ratio 1.5 (1.0-2.8); Alkaline Phosphatase 63 U/L (38-126); Aspartate Aminotransferase 31 IU/L (17-59); BUN Creatinine Ratio 27.1 (6-22); Bilirubin Total 0.5 mg/dL (0.2-1.3); Blood Urea Nitrogen 19 mg/dL (9-20); Calcium 9.3 mg/dL (8.4-10.2); Carbon Dioxide 25 mmol/L (22-32); Chloride 102 mmol/L (98-107); Cholesterol 269 mg/dL (140-199); Estimated Glomerular Filt Rate > 60 mL/min (>60); Glucose 117 mg/dL (70-100); HDL Cholesterol 29 mg/dL (40-60); HEMOLYSIS < 15 (0-50); LDL Cholesterol Calculated 190 mg/dL (<100); Sodium 137 mmol/L (137-145); Total Protein 7.4 g/dL (6.3-8.2); Triglycerides 249 mg/dL (35-150)
[2023-11-01 12:14] LABS: Hemoglobin A1C% w Est Avg Glu 5.6 % (4.0-6.0)
[2023-11-01 13:03] LABS: HIV 1 & 2 Ab/Ag 4th Gen Combo NEGATIVE (NEGATIVE)
[2023-11-01 13:09] LABS: Hep C Virus Ab w/Reflex Quant REACTIVE s/c (NEGATIVE)
== END ==
PROVIDERS: PCP Family Medicine; Referring Provider Family Medicine; Visit Provider Family Medicine
DX: E66.9 Obesity, unspecified (principal); E78.5 Hyperlipidemia, unspecified; Z00.00 Encounter for general adult medical examination without abnormal findings
CPT/HCPCS: 36415; 80053; 80061; 83036; 85025; 86803; 87389; 87522

== ENCOUNTER 2025-10-27 13:01 | Emergency (ER) | payer OTHER, SELFPAY ==
[2025-10-27] VITALS (34 sets, daily range): BP systolic 103–161; BP diastolic 53–102; PULSE 60–76; RESP 10–39; TEMP 36.4; O2SAT 91–98; BMI 32.1
--- NOTE | 2025-10-27 13:09 | EKG_ITS ---
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
--- NOTE | 2025-10-27 13:09 | DI.RAD.S_ITS ---
PROCEDURE: XR CHEST 1V INDICATIONS: Chest Pain TECHNIQUE: One view of the chest was acquired. COMPARISON: [facility], CR, XR CHEST 1V, 08/01/2018, 14:12. FINDINGS: Surgical changes and devices: None. Lungs and pleura: Lungs are clear. No pleural effusions or pneumothorax. Mediastinum: Mediastinal contours appear normal. Heart size is normal. Bones and chest wall: No suspicious bony lesions. Overlying soft tissues appear unremarkable. IMPRESSION: No acute cardiopulmonary abnormality is seen. Approved by: Argelia Bui M.D.,Ph.D. on 10/27/2025 at 14:30
[2025-10-27 13:53] LABS: Add Manual Diff / Slide Review NO; Hematocrit 43.5 % (41-53); Hemoglobin 14.7 g/dL (13.5-17.5); Lymphocytes Absolute Auto 1200 /uL (1100-4500); Mean Corpuscular HGB Conc 33.7 % (30-36); Mean Corpuscular Hemoglobin 29.0 PG (26-34); Mean Corpuscular Volume 85.9 fL (80-100); Platelet Count 279 X10^3/uL (150-400)
[2025-10-27 14:10] LABS: Alanine Aminotransferase 48 IU/L (<50); Albumin 4.8 g/dL (3.5-5.0); Albumin Globulin Ratio 1.7 (1.0-2.8); Alkaline Phosphatase 82 U/L (38-126); Blood Urea Nitrogen 16 mg/dL (9-20); Calcium 9.0 mg/dL (8.4-10.2); Carbon Dioxide 26 mmol/L (22-32); Chloride 104 mmol/L (98-107); Creatine Kinase 608 U/L (55-170); Estimated Glomerular Filt Rate > 60 mL/min (>60); Globulin 2.8 g/dL (1.7-4.1); Glucose 99 mg/dL (70-99); HEMOLYSIS < 15 (0-50); Lipase 43 U/L (23-300); Magnesium 2.1 mg/dL (1.6-2.3); Potassium 4.0 mmol/L (3.4-5.1); Sodium 139 mmol/L (137-145); Total Protein 7.6 g/dL (6.3-8.2)
[2025-10-27 14:12] LABS: INR 1.0 (0.9-1.3); Prothrombin Time 11.3 SECONDS (9.4-12.5)
[2025-10-27 14:15] LABS: PTT Partial Thromboplastin Tim 30 SECONDS (25.1-36.5)
[2025-10-27 15:04] LABS: Troponin I 5.710 ng/mL (0.01-0.034)
--- NOTE | 2025-10-27 15:15 | EKG_ITS ---
[id number] [address] Test Date: 2025-10-27 Pat Name: Eduardo Arellano Department: Room: Gender: Male On Air Personality: ABBY : 1970 Requested By: Order Number: [id number] Reading MD: Juan Patterson MD Measurements Intervals [place] Rate: 58 P: 56 NC: 174 QRS: -7 QRSD: 98 T: 45 QT: 452 QTc: 443 Interpretive Statements Sinus bradycardia Electronically Signed On 10-27-2025 16:03:35 PST by Juan Patterson MD
[2025-10-27 15:18] LABS: NT-proBNP (BNP-Adult 18+) 1090 pg/mL (<125)
--- NOTE | 2025-10-27 15:19 | ED.CHESTPAIN ---
HPI - Chest Pain General Chief Complaint: Chest Pain Stated Complaint: [place]IC, Abnormal EKG, HBP Time Seen by Provider: 10/27/25 15:08 Source: patient Mode of arrival: Family Vehicle Limitations: no limitations History of Present Illness HPI narrative: This is a 55-year-old male without significant past medical history who states starting about 8 or 9 days ago he developed intermittent burning or heaviness in his chest. The episodes will last 10-15 minutes and go away. Over the weekend he said the pain now radiates to the back. No shortness of breath nausea vomiting or diaphoresis. Patient says he used to smoke and do drugs but quit many years ago. No fevers or chills or cough no hemoptysis no abdominal pain no nausea vomiting or diarrhea. Related Data Previous Rx's ?Medication ?Instructions ?Recorded benzonatate 100 mg capsule 100 mg PO BID PRN cough #20 caps 09/29/23 rosuvastatin 10 mg tablet See Rx Instructions .Route 06/25/24 .COMPLEX #60 tabs tizanidine 4 mg tablet 4 mg PO ONCE PM PRN for muscle 10/27/25 spasm #30 tabs Allergies Allergy/AdvReac Type Severity Reaction Status Date / Time cyclobenzaprine (From AdvReac Mild SPASMS Verified 10/27/25 13:10 Flexeril) Review of Systems Review of Systems Narrative: GENERAL: Denies chills, fatigue, malaise, fever, sweats. HEENT: Denies sinus pain, ear pain, sore throat, difficulty swallowing, dizziness. RESPIRATORY: Denies dyspnea, cough, wheezing, hemoptysis, sputum. CARDIOVASCULAR: See HPI GASTROINTESTINAL: Denies nausea, vomiting, abdominal pain, diarrhea, constipation, melena. : Denies dysuria, frequency, incontinence, hematuria, urinary retention. MUSCULOSKELETAL: denies weakness, joint pain, or bony pain SKIN: Denies rash, skin lesions, or other NEUROLOGIC: Denies weakness, headache, numbness, change in speech, confusion, seizures, incoordination. PSYCHIATRIC: No concerning psychosocial issues. 12 point review of systems is negative except for those stated above Patient History Medical History (Updated 10/27/25 @ 15:27 by Rigoberto Dupree MD) Midline low back pain without sciatica (12/03/15) Pulmonary emphysema (02/01/16) Hyperlipemia (Unknown) Hepatitis C (2004) Methamphetamine abuse in remission Peripheral polyneuropathy (08/17/17) Acute bronchitis, bacterial COVID-19 Gastrocnemius equinus Plantar fasciitis, bilateral Obesity (BMI 30.0-34.9) Herpes (Unknown) Verruca plana (~2012) Hx of fracture (~1980) Plantar fasciitis (10/2017) Hearing loss (2011) Surgical History No history of previous surgery Family History Mother Cancer Grandfather No problems noted. Grandmother No problems noted. Social History details: Sandra a difficult time 2/2 most of family gone Smoking Status: Former smoker alcohol intake: never Smoking Status: Former smoker tobacco type: cigarettes Exam Narrative Exam Narrative: GENERAL:55 year old patient appears stated age. Well-developed patient, in mild distress. HEAD: Atraumatic. Normocephalic. EYES: Pupils equal round and reactive. Extraocular motions intact. No scleral icterus. No injection or drainage. ENT: Nose without bleeding, purulent drainage. Throat without erythema, tonsillar hypertrophy or exudate. Airway patent. NECK: Trachea midline. Non tender CARDIOVASCULAR: Regular rate and rhythm without murmurs, gallops, or rubs. RESPIRATORY: Clear to auscultation. Breath sounds equal bilaterally. No wheezes, rales, or rhonchi. GASTROINTESTINAL: Abdomen soft, non-tender, nondistended. EXTREMITIES: No edema or joint tenderness. BACK: Nontender without deformity or crepitance. No flank tenderness. NEURO: AOx3. SKIN: No rash or erythema of visible areas Initial Vital Signs Initial Vital Signs: Vital Signs Temperature 97.6 F 10/27/25 13:11 Pulse Rate 62 10/27/25 13:11 Respiratory Rate 18 10/27/25 13:11 Blood Pressure 131/84 10/27/25 13:11 Pulse Oximetry 98 10/27/25 13:11 Oxygen Delivery Method Room Air 10/27/25 13:11 Scores HEART Score Heart Score history: Slightly Suspicious Heart Score EKG: Normal Heart Score Age: 45-64 years old Heart Score risk factors: No known risk factors Heart Score troponin: > 3 times normal limit Heart Score Total: 3 Course Orders Ordered: ED Orders 10/27/25 13:09 XR chest 1V Stat EKG-12 Lead Stat 10/27/25 13:32 Complete Blood Count AUTO DIFF Stat Comprehensive Metabolic Panel Stat Lipase Stat Magnesium Stat NT-proBNP (BNP-Adult 18+) Stat PTT Partial Thromboplastin Morgan Stat Prothrombin Time INR Stat Troponin & CK Cardiac Panel Stat 10/27/25 15:15 Complete Blood Count AUTO DIFF Stat Comprehensive Metabolic Panel Stat NT-proBNP (BNP-Adult 18+) Stat Troponin I Stat EKG-12 Lead Stat 10/27/25 15:18 Lipid Panel Stat Discontinued Medications Aspirin (Aspirin 81 Mg Chew Tab) 324 mg PO NOW ONE Stop: 10/27/25 13:10 Aspirin (Aspirin 81 Mg Chew Tab) 324 mg PO NOW ONE Stop: 10/27/25 15:16 Atorvastatin Calcium (Atorvastatin 20 Mg Tablet) 80 mg PO NOW ONE Stop: 10/27/25 15:19 Enoxaparin Sodium (Enoxaparin 40 Mg/0.4 Ml Syringe) 110 mg SUBCUT NOW ONE Stop: 10/27/25 15:16 Nitroglycerin (Nitroglycerin Oint 1 Inch/Gm Oint...G.) 0.5 inch TOP NOW ONE Stop: 10/27/25 15:16 Vital Signs Vital signs: Vital Signs - 8 hr 10/27/25 13:11 Temperature 97.6 F Pulse Rate 62 Respiratory Rate 18 Blood Pressure 131/84 Pulse Oximetry 98 Oxygen Delivery Method Room Air MDM - Chest Pain Lab Data 10/27/25 13:32 10/27/25 13:32 Labs: Lab Results 10/27/25 Range/Units 13:32 WBC 9.0 (4.5-11.0) X10^3/uL RBC 5.07 (4.5-5.9) X10^6/uL Hgb 14.7 (13.5-17.5) g/dL Hct 43.5 (41-53) % MCV 85.9 (80-100) fL MCH 29.0 (26-34) PG MCHC 33.7 (30-36) % RDW 13.5 (11.6-14.8) % Plt Count 279 (150-400) X10^3/uL Neut % (Auto) 77.5 H (50-75) % Lymph % (Auto) 13.8 L (25-40) % [place] % (Auto) 6.9 (3-14) % Eos % (Auto) 1.2 L (2-4) % Baso % (Auto) 0.6 (0-2) % Neut # (Auto) 7000 (3029-9337) /uL Lymph # (Auto) 1200 (2388-7227) /uL [place] # (Auto) 600 (0-900) /uL Eos # (Auto) 100 (0-450) /uL Baso # (Auto) 100 (0-100) /uL PT 11.3 (9.4-12.5) SECONDS INR 1.0 (0.9-1.3) APTT 30 (25.1-36.5) SECONDS Sodium 139 (137-145) mmol/L Potassium 4.0 (3.4-5.1) mmol/L Chloride 104 (98-107) mmol/L Carbon Dioxide 26 (22-32) mmol/L BUN 16 (9-20) mg/dL Creatinine 0.71 (0.66-1.25) mg/dL Estimated GFR > 60 (>60) mL/min BUN/Creatinine Ratio 22.5 H (6-22) Glucose 99 (70-99) mg/dL Calcium 9.0 (8.4-10.2) mg/dL Magnesium 2.1 (1.6-2.3) mg/dL Total Bilirubin 0.7 (0.2-1.3) mg/dL AST 80 H (17-59) IU/L ALT 48 (<50) IU/L Alkaline Phosphatase 82 (38-126) U/L Total Creatine Kinase 608 H (55-170) U/L Troponin I 5.710 H* (0.01-0.034) ng/mL NT-Pro-B Natriuret Pep 1090 H (<125) pg/mL Total Protein 7.6 (6.3-8.2) g/dL Albumin 4.8 (3.5-5.0) g/dL Globulin 2.8 (1.7-4.1) g/dL Albumin/Globulin Ratio 1.7 (1.0-2.8) Lipase 43 (23-300) U/L [facility] Narrative Medical decision making narrative: Patient had 12 lead EKG reveals sinus rhythm at 61 beats per minute normal axis no blocks no acute changes patient had chest x-ray interpreted by me as negative patient's CBC within normal limits chemistry within normal limits INR was normal troponin was elevated at 5.71. In the emergency room patient did receive aspirin nitro paste atorvastatin Lovenox. I withheld giving the patient some p.o. metoprolol because on a monitor heart rate was 61. When I went to interview the patient the patient was still having chest pressure this is why I added the Lovenox. The patient does have an NSTEMI. He will need to be transferred to a facility that has a factory laborer capable. Because the patient is having NSTEMI and we continued chest pain he required my counseled visual some attention for a total of 45 minutes of critical care time excluding procedures. I am awaiting a call back from the accepting facility. Differential diagnosis is ACS STEMI unstable angina Discharge Plan Departure Patient Disposition: [facility] Clinical Impression: Acute non-ST elevation myocardial infarction (NSTEMI), ACS (acute coronary syndrome) Prescriptions: No Action benzonatate 100 mg capsule 100 mg PO BID PRN (Reason: cough) Qty: 20 0RF rosuvastatin 10 mg tablet See Rx Instructions .ROUTE .COMPLEX Qty: 60 2RF Dose Instruction: TAKE 1 TABLET BY MOUTH AT BEDTIME FOR TWO WEEKS, THEN INCREASE TO 2 TABS AT BEDTIME Rx Instructions: TAKE 1 TABLET BY MOUTH AT BEDTIME FOR TWO WEEKS, THEN INCREASE TO 2 TABS AT BEDTIME tizanidine 4 mg tablet 4 mg PO ONCE PM PRN (Reason: for muscle spasm) Qty: 30 0RF Referrals: Morales Weston MD [Primary Care Provider, Family Practice]
[2025-10-27] MEDS: ATORVASTATIN 20 MG TABLET 80 MG PO (15:28)
[2025-10-27] MEDS: NITROGLYCERIN OINT 1 INCH/GM OINT...G. 0.5 INCH TOP (15:28)
[2025-10-27] MEDS: ASPIRIN 81 MG CHEW TAB 324 MG PO (15:28)
[2025-10-27] MEDS: ENOXAPARIN 40 MG/0.4 ML SYRINGE 110 MG SUBCUT (15:29)
[2025-10-27 15:51] LABS: Cholesterol 288 mg/dL (140-199); HDL Cholesterol 35 mg/dL (40-60); Triglycerides 192 mg/dL (35-150)
[2025-10-27 16:10] LABS: Troponin I 6.070 ng/mL (0.01-0.034)
--- NOTE | 2025-10-27 19:41 | W.PC.EDHO ---
Report received from SHEELA Rahman
[2025-10-27 22:53] LABS: Troponin I 6.140 ng/mL (0.01-0.034)
[2025-10-28] VITALS (15 sets, daily range): BP systolic 85–127; BP diastolic 50–80; PULSE 64–89; RESP 9–33; TEMP 36.8; O2SAT 91–95
== END 2025-10-28 03:14 | disposition short-term general hospital (02) ==
PROVIDERS: Emergency Medicine; Emergency Provider Emergency Medicine; Family Provider Family Medicine; PCP Family Medicine
DX: I21.4 Non-ST elevation (NSTEMI) myocardial infarction (principal); I24.9 Acute ischemic heart disease, unspecified; Z87.891 Personal history of nicotine dependence
CPT/HCPCS: 36415; 71045; 80053; 80061; 82550; 83690; 83735; 83880; 84484; 85025; 85610; 85730; 93005; 93010; 96372; 99284; J1650